=== PATIENT | male | born 1995 | race African-American/Black ===

== ENCOUNTER 2019-01-12 07:15 | Emergency (ER) | payer SELFPAY ==
[~2019-01-12] VITALS: Ht 190.5 cm; Wt 77.3 kg
[2019-01-12 08:04] LABS: BASOPHILS % (AUTO) 0.7 % (0.0-2.0); HEMATOCRIT 41.2 % (41-53); LYMPHOCYTES # (AUTO) 1.5 K/uL (1.0-4.8); LYMPHOCYTES % (AUTO) 22.3 % (22.0-44.0); MEAN CORPUSCULAR HEMOGLOBIN 31.1 pg (26.0-34.0); MEAN CORPUSCULAR HGB CONC 33.9 G/dL (31.0-37.0); MEAN CORPUSCULAR VOLUME 92 fL (80-100); MONOCYTES # (AUTO) 0.5 K/uL (0.1-1.0); MONOCYTES % (AUTO) 7.6 % (2.0-9.0); NEUTROPHILS # (AUTO) 4.4 K/uL (1.8-7.7); NEUTROPHILS % (AUTO) 64.4 % (40.0-70.0); PLATELET COUNT (AUTO) 326 K/uL (150-450); RED BLOOD CELL COUNT(AUTO) 4.49 MIL/uL (4.50-5.90); RED CELL DISTRIBUTION WIDTH 13.4 % (11.5-14.5)
[2019-01-12 08:13] LABS: AMPHET/METH SCREEN,URINE POSITIVE (NEGATIVE); BARBITURATE SCREEN, URINE NEGATIVE (NEGATIVE); BENZODIAZEPINES SCREEN,URINE NEGATIVE (NEGATIVE); CANNABINOID SCREEN,URINE POSITIVE (NEGATIVE); COCAINE SCREEN,URINE NEGATIVE (NEGATIVE); METHADONE SCREEN, URINE NEGATIVE (NEGATIVE); OPIATE SCREEN,URINE NEGATIVE (NEGATIVE)
[2019-01-12 08:16] LABS: PHENCYCLIDINE SCREEN,URINE NEGATIVE (NEGATIVE)
[2019-01-12 08:19] LABS: ANION GAP 7 mmol/L (8-16); CALCIUM, TOTAL 8.2 mg/dL (8.8-10.5); CARBON DIOXIDE 27 mmol/L (22-29); CHLORIDE 107 mmol/L (98-107); CREATININE 0.85 mg/dL (0.60-1.30); GLOMERULAR FILTR. RATE CALC > 60 mL/min (>60); GLUCOSE,RANDOM 109 mg/dL (70-110); POTASSIUM 3.9 mmol/L (3.5-5.1); SODIUM SERUM 141 mmol/L (136-145); UREA NITROGEN, BLOOD 8 mg/dL (7-18)
[2019-01-12 08:25] LABS: ALANINE AMINOTRANSFERASE 33 U/L (12-78); ALBUMIN 3.4 g/dL (3.4-5.0); ALKALINE PHOSPHATASE 72 U/L (46-116); ASPARTATE AMINOTRANSFERASE 11 U/L (15-37); BILIRUBIN,TOTAL 0.2 mg/dL (0.1-1.0); TOTAL PROTEIN, SERUM 6.6 g/dL (6.4-8.2)
[2019-01-12 11:00] VITALS: BP 115/69
== END 2019-01-12 11:19 | disposition home or self-care (01) ==
LOC: EMS 07:16 → EDBD 07:16 → EMS 11:19
DX: F10.11 Alcohol abuse, in remission (principal); F15.11 Other stimulant abuse, in remission; F32.9 Major depressive disorder, single episode, unspecified; F17.210 Nicotine dependence, cigarettes, uncomplicated; F19.90 Other psychoactive substance use, unspecified, uncomplicated; Y90.0 Blood alcohol level of less than 20 mg/100 ml
CPT/HCPCS: 36415; 80053; 80307; 85025; 99283; 99406; G0480

== ENCOUNTER 2019-03-22 16:57 | Emergency (ER) | payer MEDICAID ==
[~2019-03-22] VITALS: Ht 190.5 cm; Wt 70.5 kg
[2019-03-22 17:06] VITALS: BP 107/64
== END 2019-03-22 18:33 | disposition left against medical advice (07) ==
LOC: EMS 16:59
DX: M25.562 Pain in left knee (principal); Z53.21 Procedure and treatment not carried out due to patient leaving prior to being seen by health care provider

== ENCOUNTER 2022-03-22 18:38 | Inpatient (IN) | payer MEDICAID ==
[~2022-03-22] VITALS: Ht 190.5 cm; Wt 70.3 kg
[2022-03-22 20:20] LABS: COVID AG,FIA SOURCE NASOPHARYNGEAL
[2022-03-22 20:42] LABS: BASOPHILS % (AUTO) 0.6 % (0.0-2.0); EOSINOPHILS % (AUTO) 2.6 % (1.0-6.0); HEMATOCRIT 39.6 % (41-53); HEMOGLOBIN 13.7 g/dL (13.5-17.5); LYMPHOCYTES # (AUTO) 2.4 K/uL (1.0-4.8); MEAN CORPUSCULAR HEMOGLOBIN 30.3 pg (26.0-34.0); MEAN CORPUSCULAR HGB CONC 34.7 G/dL (31.0-37.0); MEAN CORPUSCULAR VOLUME 87 fL (80-100); MONOCYTES # (AUTO) 0.6 K/uL (0.1-1.0); MONOCYTES % (AUTO) 5.8 % (2.0-9.0); NEUTROPHILS # (AUTO) 7.6 K/uL (1.8-7.7); PLATELET COUNT (AUTO) 372 K/uL (150-450); RED BLOOD CELL COUNT(AUTO) 4.54 MIL/uL (4.50-5.90); RED CELL DISTRIBUTION WIDTH 13.6 % (11.5-14.5)
[2022-03-22 20:53] LABS: ANION GAP 18 mmol/L (8-16); CALCIUM, TOTAL 8.6 mg/dL (8.8-10.5); CARBON DIOXIDE 25 mmol/L (22-29); CHLORIDE 99 mmol/L (98-107); CREATININE 0.65 mg/dL (0.60-1.30); GLUCOSE,RANDOM 106 mg/dL (70-110); POTASSIUM 3.5 mmol/L (3.5-5.1); SODIUM SERUM 142 mmol/L (136-145); UREA NITROGEN, BLOOD 10 mg/dL (7-18)
[2022-03-22 20:58] LABS: ALANINE AMINOTRANSFERASE 53 U/L (12-78); ALBUMIN 3.5 g/dL (3.4-5.0); ALKALINE PHOSPHATASE 89 U/L (46-116); ASPARTATE AMINOTRANSFERASE 36 U/L (15-37); BILIRUBIN,TOTAL 0.3 mg/dL (0.1-1.0); TOTAL PROTEIN, SERUM 7.3 g/dL (6.4-8.2)
[2022-03-22 21:01] LABS: GLOMERULAR FILTR. RATE CALC > 60 mL/min (>60)
[2022-03-23 00:59] VITALS: BP 140/83
[2022-03-23 08:30] VITALS: BP 109/67
[2022-03-23] MEDS: SERTRALINE HCL 50 MG TABLET PO SCH (10:57)
[2022-03-23 20:20] VITALS: BP 118/76
[2022-03-24] MEDS ORDERED: ONDANSETRON HCL 4 MG TABLET PO PRN (08:15)
[2022-03-24] MEDS ORDERED: ACETAMINOPHEN 325 MG TABLET PO PRN (08:15)
[2022-03-24] MEDS ORDERED: MAGNESIUM HYDROXIDE SUSPENSION 30 ML UDCUP PO PRN (08:15)
[2022-03-24] MEDS: SERTRALINE HCL 50 MG TABLET PO SCH (08:54)
[2022-03-24] MEDS: HALOPERIDOL 5 MG TABLET PO PRN (10:45)
[2022-03-24] MEDS: LORazepam 2 MG TABLET PO PRN ×2 (10:45→20:41)
[2022-03-24 13:30] VITALS: BP 124/68
[2022-03-25 06:41] VITALS: BP 107/72
[2022-03-25 08:15] VITALS: BP 110/68
[2022-03-25] MEDS: HALOPERIDOL 5 MG TABLET PO PRN (08:17)
[2022-03-25] MEDS: SERTRALINE HCL 50 MG TABLET PO SCH (08:17)
[2022-03-25] MEDS: LORazepam 2 MG TABLET PO PRN (08:17)
[2022-03-25 21:22] VITALS: BP 126/82
[2022-03-26] MEDS: LORazepam 2 MG TABLET PO PRN ×3 (00:41→16:28)
[2022-03-26] MEDS: ZOLPIDEM TARTRATE 10 MG TABLET PO PRN (00:41)
[2022-03-26 08:14] VITALS: BP 122/73
[2022-03-26] MEDS: SERTRALINE HCL 50 MG TABLET PO SCH (08:20)
[2022-03-26] MEDS: HALOPERIDOL 5 MG TABLET PO PRN (16:28)
[2022-03-26] MEDS: IBUPROFEN 400 MG TABLET PO PRN (16:29)
[2022-03-26 20:14] VITALS: BP 124/75
[2022-03-27] MEDS: LORazepam 2 MG TABLET PO PRN ×3 (03:03→20:41)
[2022-03-27] MEDS: HALOPERIDOL 5 MG TABLET PO PRN ×2 (03:03→20:41)
[2022-03-27] MEDS: SERTRALINE HCL 50 MG TABLET PO SCH (08:12)
[2022-03-27] MEDS: IBUPROFEN 400 MG TABLET PO PRN (08:12)
[2022-03-27 10:23] VITALS: BP 112/69
[2022-03-27 20:10] VITALS: BP_SYST 108; BP_SYST 118; BP_DIAS 68; BP_DIAS 72
[2022-03-27] MEDS: ZOLPIDEM TARTRATE 10 MG TABLET PO PRN (20:42)
[2022-03-28 08:21] VITALS: BP 128/74
[2022-03-28] MEDS: LORazepam 2 MG TABLET PO PRN ×2 (09:10→17:28)
[2022-03-28] MEDS: SERTRALINE HCL 50 MG TABLET PO SCH (09:10)
[2022-03-28] MEDS: HALOPERIDOL 5 MG TABLET PO PRN (17:28)
[2022-03-28] MEDS: IBUPROFEN 400 MG TABLET PO PRN (17:28)
[2022-03-28 20:05] VITALS: BP 136/81
[2022-03-29 08:14] VITALS: BP 124/76
[2022-03-29] MEDS: SERTRALINE HCL 50 MG TABLET PO SCH (08:43)
[2022-03-29] MEDS: LORazepam 2 MG TABLET PO PRN (08:46)
[2022-03-29] MEDS ORDERED: SERT-158 PO (13:23)
[2022-03-29] MEDS ORDERED: SERT-439 PO (15:27)
== END 2022-03-29 19:31 | disposition home or self-care (01) | DRG 751 ==
LOC: EMS 19:04 → B3A 03-23 00:27
PROVIDERS: ADMIT Psychiatry & Neurology Child & Adolescent Psychiatry; ATTEND Psychiatry & Neurology Child & Adolescent Psychiatry
DX: F33.3 Major depressive disorder, recurrent, severe with psychotic symptoms (principal); R45.851 Suicidal ideations; R56.9 Unspecified convulsions; D72.829 Elevated white blood cell count, unspecified; F10.10 Alcohol abuse, uncomplicated; F15.10 Other stimulant abuse, uncomplicated; Y90.1 Blood alcohol level of 20-39 mg/100 ml; Z20.822 Contact with and (suspected) exposure to COVID-19; F41.9 Anxiety disorder, unspecified; F19.10 Other psychoactive substance abuse, uncomplicated; Z71.41 Alcohol abuse counseling and surveillance of alcoholic; Z71.51 Drug abuse counseling and surveillance of drug abuser
CPT/HCPCS: 80053; 85025; 99285; G0480